=== PATIENT | female | born 1985 | race African-American/Black ===

== ENCOUNTER 2024-03-09 03:12 | Emergency (ER) | payer OTHER ==
[~2024-03-09] VITALS: Ht 147.3 cm; Wt 45.5 kg
[2024-03-09 03:27] VITALS: BP 137/91; PULSE 101; RESP 16; TEMP 98
== END 2024-03-09 04:09 | disposition home or self-care (01) ==
LOC: EMS 03:12
DX: F10.229 Alcohol dependence with intoxication, unspecified (principal); Y90.9 Presence of alcohol in blood, level not specified
CPT/HCPCS: 99283; Z7502